=== PATIENT | female | born 1950 | race Caucasian/White ===

== ENCOUNTER → 2018-05-21 10:36 | Outpatient (CLI) | payer MEDICARE, OTHER ==
--- NOTE | ~2018-05-21 | EC ---
PATIENT:KRISHAN SABILLON DATE OF SERVICE: 05/21/18 SEX: F MEDICAL RECORD: [id number] DATE OF : 46 LOCATION:D[facility] AGE OF PATIENT: 67 ADMISSION DATE: 05/21/18 REFERRING PHYSICIAN: INTERPRETING PHYSICIAN: MARIAH BOWLING MD ECHOCARDIOGRAM REPORT ECHO CHARGES 4 ECHO COMPLETE Date: 05/21 CLINICAL DIAGNOSIS: AFIB/PRECORDIAL PAIN,CP,FATIGUE,HTN ECHOCARDIOGRAPHIC MEASUREMENTS (adult normal given) AC root (d.<3.7cm) 3.3 cm LV Septum d (<1.2 cm> 1.4 cm Valve Excursion 1.6 cm LV Septum (systole) 1.5 cm Left Atria (s.<4.0cm> 3.6 cm LVPW d(<1.2cm) 1.4 cm RV (d.<2.3cm) 3.3 cm LVPW (sytole) 1.6 cm LV diastole(<5.6CM) 4.0 cm MV E-F(>70mm/sec) cm LV systole 2.6 cm LVOT Diameter 1.6 cm MV exc.(>10mm) 1.2 cm Est.ejection fraction (50-75%) % DOPPLER: LVIT cm/sec A 60.0 cm/sec E 96.0 cm/sec LA cm/sec RVSP 30 mmHg LVOT 78 cm/sec AOP1/2T m/s Asc. Ao 108 cm/sec RVOT 88 cm/sec RA cm/sec PA 104 cm/sec AV Gradient Peak 4.64 mmHg AV Mean 2.28 mmHg AV Area 1.7 cm MV Gradient Peak 4.74 mmHg MV Mean 1.61 mmHg MV Area cm COMMENTS: Legislative Correspondent: Namrata DARDEN Oriental Rug Repairer: Pippa Bowling TAPE# PACS Pericardial Effusion N DATE OF SERVICE: 05/21/2018 PROCEDURE: Transthoracic echocardiogram. FINDINGS: 1. Left ventricle has evidence of mild left ventricular hypertrophy. Inflow characteristics, however, are normal. 2. The left atrium is normal size, normal function. 3. The left ventricular ejection fraction 65%. 4. Aortic valve is normal. ECHOCARDIOGRAM REPORT [id number] KRISHAN SABILLON 5. The mitral valve has mild mitral regurgitation. 6. The tricuspid valve has mild tricuspid regurgitation. RVSP is normal. 7. The right ventricle is mild to moderately dilated. 8. The right atrium is of normal size, normal function. 9. The pulmonic valve is normal. 10. There is no pericardial effusion. CONCLUSIONS: The patient has evidence of left ventricular hypertrophy, otherwise normal echocardiogram for the patient's stated age. TRANSINT:[id number] Voice Confirmation ID: [id number] DOCUMENT ID: [id number] MARIAH BOWLING MD at 0927 CC: [id number] DICTATION DATE: 05/23/18 1027 MULTIPLE WIRE SAWYER: 05/23/18 1055 DEP CLI 05/21/18 [id number] [place] [address]
[~2018-05-21 10:36] MED LIST: BAYER CHEWABLE81 MG PO; PROPAFENONE HC225 MG PO
[2018-06-08 08:23] VITALS: BMI 42.1
== END | disposition home or self-care (01) ==
LOC: D.ECHO 05-17 09:35
DX: I48.91 Unspecified atrial fibrillation (principal); R07.2 Precordial pain; R53.83 Other fatigue; R07.9 Chest pain, unspecified; I10 Essential (primary) hypertension; G47.33 Obstructive sleep apnea (adult) (pediatric)

== ENCOUNTER 2018-06-08 07:12 | Outpatient (CLI) | payer MEDICARE, OTHER ==
[~2018-06-08] VITALS: Ht 157.5 cm; Wt 104.5 kg
--- NOTE | ~2018-06-08 | HEMODYNAMI ---
PATIENT:KRISHAN SABILLON MEDICAL RECORD: [id number] : 46 LOCATION:D[facility] ADMISSION DATE: 06/08/18 Generatedon:06/08/20189:49 Patient name: KRISHAN SABILLON Patient #: [id number] SSN: D OB: 1950 Date of study: 06/08/2018 Page: Of Hemodynamic Procedure Report Patient Data Patient Demographics Procedure consent was obtained First Name: KRISHAN Gender: Female Last Name: RIDGE : 1950 Middle Initial: S Age: 68 year(s) Patient #: [id number] Race: Unknown Additional ID: [id number] Contact details [address]: [address] [place] [address] State: [place] City: [place] Zip code: [address] Admission Admission Data Admission Date: 06/08/2018 Admission Time: 7:12 Procedure Procedure Types Cath Procedure Diagnostic Procedure PPM/ICD Loop Recorder Implant Procedure Description Procedure Date Procedure Date: 06/08/2018 Procedure Start Time: 9:40 Procedure Staff Name Function Hayden Bowling MD Performing Physician Abdifatah Knox RN Awning Craftsperson Cierra Rodas RT Monitor Sangeetha Brandon RT Scrub Abdullahi Ovalles RN Nurse Procedure Medications Medication Administration Route Dosage 0.9% NaCl I.V. 100 ml/hr Ancef (1Gm/50ml NS) I.V.P.B 1 g Hemodynamics Rest Pre Cath Intra NCS Post Cath Vital Signs Time Heart Resp SPO2 etCO2 NIBP (mmHg) Rhythm Pain Sedation Rate (ipm) (%) (mmHg) Status Level (bpm) 9:35:44 70 19 100 0 162/90(139) NSR 0 (11) 10(A) , No pain 9:40:45 77 13 100 0 171/83(123) NSR 0 (11) 10(A) , No pain 9:45:42 67 11 99 0 155/76(102) NSR 0 (11) 10(A) , No pain Medications Time Medication Route Dose Verified Delivered Reason Notes Effectiven ess by by 9:34:01 0.9% NaCl I.V. 100 Abdullahi Abdullahi Per ml/hr Josr guzman RN RN 9:34:22 Ancef I.V.P.B 1 g Abdullahi Abdullahi Per (1Gm/50ml Josr guzman NS) RN dye colorist formulator Log Time Note 9:24:58 Abdifatah Knox RN sent for patient. Start room use. 9:24:59 Signed procedure consent form obtained from patient. 9:26:05 Time tracking: Regular hours (M-F 7:00 - 5:00) 9:26:09 Plan of Care:Hemodynamics will remain stable., Cardiac rhythm will remain stable., Comfort level will be maintained., Respiratory function will remain adequate., Patient/ family verbilizes understanding of procedure., Procedure tolerated without complication., Recovers from procedure without complications.. 9:27:37 Patient received from Pre/Post Procedure Room to CCL 1 Alert and oriented. Tansferred to table in Supine position. 9:27:37 Patient arrived from Pre/Post Procedure Room to CCL 1. Patient remains on bed/stretcher for procedure. 9:27:38 Warm blankets applied, and bertram hugger turned on for patient comfort. 9:27:39 Correct patient and procedure confirmed by team. 9:27:41 ECG and BP/O2 sat monitors applied to patient. 9:34:01 0.9% NaCl 100 ml/hr I.V. was administered by Abdullahi Ovalles RN; Per physician; 9:34:22 Ancef (1Gm/50ml NS) 1 g I.V.P.B was administered by Abdullahi Ovalles RN; Per physician; 9:34:32 Vital chart was started 9:39:36 Final Timeout: patient, procedure, and site verified with staff and physician. All members of the team are in agreement. 9:39:39 Mid Chest site verified by team. 9:39:43 Physical assessment completed. ASA score P 2 - A patient with mild systemic disease as per Hayden Bowling MD. 9:39:44 SEDATION PLAN: NO SEDATION 9:40:03 Lidocaine 2% was administered to mid chest by Hayden Bowling MD . 9:40:08 Incision made to mid chest. 9:41:59 Linq was inserted subcutaneously to mid chest. 9:42:06 Skin closure was completed with 35mm Juan. 9:42:12 Mid Chest incision was dressed with gauze eyepad and tegaderm. 9:42:16 Procedure ended.(Physican Out) 9:43:39 Post procedure instruction explained to patient.Patient verbalizes understanding. 9:43:40 Patient needs reinforcement of post procedure teaching. 9:43:45 See physician's report for complete and final results. 9:44:07 Medtronic Linq Loop Recorder opened to sterile field. 9:44:08 Stapler Skin 35W Proximate Plus (PMW35) opened to sterile field. 9:44:08 Tegaderm 4 x 4 (1626W) opened to sterile field. 9:45:25 Procedure and supply charges have been captured, reviewed, submitted and are correct. 9:45:38 Vital chart was stopped 9:45:41 Report given to Pre/Post Procedure Room. 9:45:45 Patient transfered to Pre/Post Procedure Room with Stretcher. 9:45:48 End room use (Document Last) 9:48:17 H&P Date Dictated: 05/25/2018 Within 30 days and on chart., H&P Addendum completed by physician on day of procedure. (MUST COMPLETE FOR ALL OUTPATIENTS). Device Usage Item Name Manufacture Quantity Catalog Hospital Part Current Minimal Lot# / Number Charge Number Stock Stock Serial# Code Medtronic Medtronic 1 [id number] 5 SN Linq Loop [id number] Recorder EXP 2019-03-27 Stapler Unknown 1 [id number] [id number] Skin 35W Proximate Plus (PMW35) Tegaderm 3M 1 [id number] 4 x 4 (1626W) Signature Audit Butler Stage Time Signature Unsigned Intra-Procedure 06/08/2018 Cierra 9:49:01 AM Counts RT(R) Signatures Monitor : Cierra Signature : Counts RT Date : Time : [place] [address]
[2018-06-08] MEDS ORDERED: PROPAFENONE HC225 MG PO (08:15)
[2018-06-08] MEDS ORDERED: BAYER CHEWABLE81 MG PO (08:16)
[2018-06-08 08:23] VITALS: BP 156/66; Ht 157.5 cm; Wt 104.5 kg
== END 2018-06-08 10:45 | disposition home or self-care (01) ==
LOC: D.CATH 07:12
DX: I48.91 Unspecified atrial fibrillation (principal); Z01.812 Encounter for preprocedural laboratory examination

== ENCOUNTER → 2019-02-23 14:11 | Outpatient (CLI) | payer MEDICARE, OTHER ==
[2018-06-08 08:23] VITALS: BMI 42.1
== END | disposition home or self-care (01) ==
LOC: D.HCCARDIO 14:11
PROVIDERS: ATTEND Internal Medicine Cardiovascular Disease
DX: I48.91 Unspecified atrial fibrillation (principal)